=== PATIENT | male | born 1975 | race African-American/Black ===

== ENCOUNTER 2017-07-05 09:00 | Emergency (ER) | payer OTHER ==
[~2017-07-05] VITALS: Ht 177.8 cm; Wt 90.7 kg
[~2017-07-05 09:00] MED LIST: ACETAMINOPHEN PO; HYDROCODONE-APA1 T42 PO; KEFLEX PO
== END 2017-07-05 09:40 | disposition home or self-care (01) ==
LOC: CFTX 09:00 → CED 09:00 → CFTX 09:31
DX: S39.012A Strain of muscle, fascia and tendon of lower back, initial encounter (principal); V49.40XA Driver injured in collision with unspecified motor vehicles in traffic accident, initial encounter; Y92.488 Other paved roadways as the place of occurrence of the external cause
CPT/HCPCS: 99283